=== PATIENT | female | born 1965 | race Caucasian/White ===

== ENCOUNTER → 2022-01-04 | Day surgery (SDC) | payer BC ==
[2021-12-31 11:59] LABS: BASOPHILS % 0.3 % (0.0-1.0); EOSINOPHILS # (AUTO) 0.2 (0.0-0.4); EOSINOPHILS % 1.7 % (0.0-6.0); HEMATOCRIT 46.7 % (34.2-44.1); HEMOGLOBIN 14.3 g/dL (12.0-16.0); LYMPHOCYTES % 22.3 % (18.0-39.1); MEAN CORPUSCULAR HEMOGLOBIN 26.5 pg (28-32); MEAN CORPUSCULAR HGB CONC 30.6 g/dL (31-35); MEAN CORPUSCULAR VOLUME 86.6 fL (81-99); MONOCYTES # (AUTO) 0.6 (0.2-0.8); MONOCYTES % 6.8 % (4.4-11.3); NEUTROPHILS # (AUTO) 6.1 (2.1-6.9); NEUTROPHILS % 68.4 % (38.7-80.0); PLATELET COUNT 247 x10e3/uL (140-360); RED BLOOD COUNT 5.39 x10e6/uL (3.6-5.1); RED CELL DISTRIBUTION WIDTH 16.5 % (11.7-14.4)
[2021-12-31 12:17] LABS: CREATININE, SERUM 0.84 mg/dL (0.57-1.11)
[~2022-01-04] MED LIST: CEFTRIAXONE 1 GM VIAL ONE; CRESTOR10 MG PO; ENALAPRIL MALEA10 MG; FENTANYL CITRATE/PF 100MCG/2 ML INJ ONE; FLAGYL500 MG PO; Famotidine IV; IOPAMIDOL 300MG/ML 50ML INFUS..BTL IV ONE; LEVAQUIN500 MG PO; LISINOPRIL-HCT1 EAC6; LOSARTAN POTASS25 MG PO; MIDAZOLAM HCL 2 MG/2 ML VIAL ONE; MONTELUKAST SOD10 MG PO; NICOTINE PATCH TOP; SODIUM CHLORIDE 0.9% 1000ML 1,000 ML ONE; TYLENOL325 MG PO; Z.0.METOPROLOL TART2; Z.0.SIMVASTATIN40 MG
[2022-01-04 09:00] VITALS: BP 133/73
== END | disposition home or self-care (01) ==
LOC: OR 05:25
PROVIDERS: ATTEND Urology
DX: N20.0 Calculus of kidney (principal); N13.30 Unspecified hydronephrosis; G47.33 Obstructive sleep apnea (adult) (pediatric); J44.9 Chronic obstructive pulmonary disease, unspecified; E11.9 Type 2 diabetes mellitus without complications; Z88.6 Allergy status to analgesic agent; Z88.0 Allergy status to penicillin; Z01.810 Encounter for preprocedural cardiovascular examination; Z01.812 Encounter for preprocedural laboratory examination; Z01.818 Encounter for other preprocedural examination; Z20.822 Contact with and (suspected) exposure to COVID-19; Z79.899 Other long term (current) drug therapy
CPT/HCPCS: 0223U; 36415; 52356; 71046; 74018; 74420; 80048; 85025; 93005; C1769; C1874; J0696; J2250; J3010; J7030; Q9967

== ENCOUNTER → 2022-01-29 | Day surgery (SDC) | payer BC ==
[~2022-01-29] MED LIST changes: -CEFTRIAXONE 1 GM VIAL ONE; +DEXAMETHASONE SOD PHOS INJ 4 MG/ML SDV ONE; +GENTAMICIN 80MG/NS 100 ML 100 ML IV ONE; +LIDOCAINE HCL 2% LOCAL INJ 5 ML SDV VIAL INJ ONE; +ONDANSETRON HCL INJ 2MG/ML 2ML 2 MG/ML VIAL ONE; +POVIDONE IODINE 0.05% 0.05 % ML PO ONE; +PROPOFOL IV EMULSION 10 MG/ML 20 ML VIAL ONE; +SEVOFLURANE INHAL SOLN 250 ML PEN BTL ONE; -SODIUM CHLORIDE 0.9% 1000ML 1,000 ML ONE; +UROCIT-K10 MEQ PO
[2022-01-29 09:57] VITALS: BP 132/74
== END | disposition home or self-care (01) ==
LOC: OR 07:05
PROVIDERS: ATTEND Urology
DX: N20.2 Calculus of kidney with calculus of ureter (principal); Z46.6 Encounter for fitting and adjustment of urinary device; N39.0 Urinary tract infection, site not specified; R35.1 Nocturia; N28.1 Cyst of kidney, acquired; D41.00 Neoplasm of uncertain behavior of unspecified kidney; I10 Essential (primary) hypertension; E66.01 Morbid (severe) obesity due to excess calories; Z88.6 Allergy status to analgesic agent; Z88.0 Allergy status to penicillin; Z88.8 Allergy status to other drugs, medicaments and biological substances; Z01.818 Encounter for other preprocedural examination; Z79.899 Other long term (current) drug therapy; Z68.41 Body mass index [BMI] 40.0-44.9, adult; Z84.1 Family history of disorders of kidney and ureter
CPT/HCPCS: 52353; 74018; 88300; C1758 ×2; C1769; J1100; J1580; J2001; J2250; J2405; J2704; J3010; Q9967; 76000

== ENCOUNTER 2024-03-21 04:35 | Inpatient (IN) | payer BC ==
[~2024-03-21] VITALS: Ht 157.5 cm; Wt 86.2 kg
[2024-03-21] VITALS (39 sets, daily range): BP systolic 131–182; BP diastolic 82–114; PULSE 89–106; RESP 15–24; TEMP 98.8–103.1; O2SAT 100
[~2024-03-21 04:35] MED LIST changes: +CYMBALTA20 MG PO; -DEXAMETHASONE SOD PHOS INJ 4 MG/ML SDV ONE; -FENTANYL CITRATE/PF 100MCG/2 ML INJ ONE; +FIBER GUMMIES2 GM; -GENTAMICIN 80MG/NS 100 ML 100 ML IV ONE; +HYDROCHLOROTH12.5 MG; -IOPAMIDOL 300MG/ML 50ML INFUS..BTL IV ONE; +JARDIANCE10 MG; -LIDOCAINE HCL 2% LOCAL INJ 5 ML SDV VIAL INJ ONE; -MIDAZOLAM HCL 2 MG/2 ML VIAL ONE; -ONDANSETRON HCL INJ 2MG/ML 2ML 2 MG/ML VIAL ONE; +OXYBUTYNIN CHLOR5 MG PO; +OZEMPIC2 MG/0.75; -POVIDONE IODINE 0.05% 0.05 % ML PO ONE; -PROPOFOL IV EMULSION 10 MG/ML 20 ML VIAL ONE; -SEVOFLURANE INHAL SOLN 250 ML PEN BTL ONE
[2024-03-21 05:11] LABS: BASOPHILS % 0.2 % (0.0-1.0); EOSINOPHILS % 0.1 % (0.0-6.0); HEMATOCRIT 45.9 % (34.2-44.1); HEMOGLOBIN 13.8 g/dL (12.0-16.0); LYMPHOCYTES # (AUTO) 1.4 (1.0-3.2); LYMPHOCYTES % 11.5 % (18.0-39.1); MEAN CORPUSCULAR HEMOGLOBIN 27.4 pg (28-32); MEAN CORPUSCULAR HGB CONC 30.1 g/dL (31-35); MEAN CORPUSCULAR VOLUME 91.1 fL (81-99); MONOCYTES # (AUTO) 0.7 (0.2-0.8); MONOCYTES % 5.5 % (4.4-11.3); NEUTROPHILS # (AUTO) 10.2 (2.1-6.9); NEUTROPHILS % 82.1 % (38.7-80.0); PLATELET COUNT 189 x10e3/uL (140-360); RED BLOOD COUNT 5.04 x10e6/uL (3.6-5.1); RED CELL DISTRIBUTION WIDTH 14.7 % (11.7-14.4); WHITE BLOOD COUNT 12.43 x10e3/uL (4.8-10.8)
[2024-03-21] MEDS: ACETAMINOPHEN 325 MG TAB PO ONE (05:25)
[2024-03-21] MEDS: ONDANSETRON HCL INJ 2MG/ML 2ML 2 MG/ML VIAL IV STA (05:25)
[2024-03-21 05:32] LABS: INFLUENZA A AG NEGATIVE (NEGATIVE); INFLUENZA B AG NEGATIVE (NEGATIVE)
[2024-03-21 05:33] LABS: CORONAVIRUS COVID-19 AG NEGATIVE (NEGATIVE)
[2024-03-21 05:34] LABS: ALBUMIN 3.8 g/dL (3.5-5.0); ALBUMIN/GLOBULIN RATIO 1.3 (0.8-2.0); ANION GAP 15.6 mmol/L (8-16); BILIRUBIN,TOTAL 2.5 mg/dL (0.2-1.2); CALCIUM 10.1 mg/dL (8.4-10.2); CREATININE, SERUM 0.88 mg/dL (0.57-1.11); POTASSIUM 3.6 mmol/L (3.5-5.1); TOTAL PROTEIN 6.8 g/dL (6.5-8.1)
[2024-03-21] MEDS ORDERED: SODIUM CHLORIDE 0.9% 1000ML 1,000 ML IV ONE (06:30)
[2024-03-21] MEDS ORDERED: LORAZEPAM INJ 2 MG/ML VIAL ONE (06:50)
[2024-03-21] MEDS: LORAZEPAM INJ 2 MG/ML VIAL IM STA (06:58)
[2024-03-21] MEDS ORDERED: SODIUM CHLORIDE 0.9% IV SCH (07:30)
[2024-03-21] MEDS ORDERED: PIPERACILLIN/TAZOBACTAM 4.5 GM in SODIUM CHLORIDE 0.9% 100 ML IV ONE (07:30)
[2024-03-21 07:32] LABS: CLARITY,URINE CLEAR (CLEAR); COLOR,URINE YELLOW (YELLOW); LEUKOCYTE ESTERASE ,URINE NEGATIVE (NEGATIVE); NITRITE,URINE NEGATIVE (NEGATIVE); PH,URINE 5.5 (5 - 7)
[2024-03-21 07:33] LABS: AMPHETAMINES SCREEN,URINE NEGATIVE (NEGATIVE); BENZODIAZEPINES SCREEN,URINE NEGATIVE (NEGATIVE); BILIRUBIN,URINE SMALL (NEGATIVE); CANNABINOIDS SCREEN,URINE NEGATIVE (NEGATIVE); COCAINE SCREEN,URINE NEGATIVE (NEGATIVE); GLUCOSE, URINE 500 (NEGATIVE); KETONES,URINE 2+ (NEGATIVE); METHADONE SCREEN, URINE NEGATIVE (NEGATIVE); OPIATES SCREEN,URINE POSITIVE (NEGATIVE); PHENCYCLIDINE SCREEN,URINE NEGATIVE (NEGATIVE); PROTEIN,URINE DIPSTICK 2+ (NEGATIVE); URINE UROBILINOGEN 0.2 mg/dL (0.2 - 1)
[2024-03-21 07:41] LABS: INR 0.98; PROTHROMBIN TIME 13.6 seconds (11.9-14.5)
[2024-03-21 07:42] LABS: PARTIAL THROMBOPLASTIN TIME 31.1 seconds (23.8-35.5)
[2024-03-21 07:43] LABS: BACTERIA,URINE MANY /HPF; RBC,URINE 0-5 /HPF (0-5); WBC,URINE (MAN) 21-50 /HPF (0-5)
[2024-03-21 07:44] LABS: YEAST,URINE MODERATE
[2024-03-21 07:45] LABS: EPITHELIAL CELLS,URINE MODERATE /LPF
[2024-03-21 08:19] LABS: APPEARANCE,CSF CLOUDY (CLEAR)
[2024-03-21 08:20] LABS: TUBE NUMBER 3
[2024-03-21] MEDS: PROPOFOL IV EMULSION 10MG/ML 100 ML IV PRN (08:22)
[2024-03-21] MEDS: PROPOFOL IV EMULSION 10 MG/ML 20 ML VIAL IV ONE (08:24)
[2024-03-21 08:30] LABS: RED BLOOD CELL,CSF 77 cells/uL (0-10); WHITE BLOOD CELL,CSF 2772 cells/uL (0-5)
[2024-03-21 08:31] LABS: ABG HCO3 18 mmol/L (22-26); ABG PCO2 24 mmHg (35-45); ABG PH 7.48 (7.35-7.45); ABG PO2 266 mmHg (80-105); ABG TCO2 19
[2024-03-21 08:31] LABS: COLOR,CSF XANTHOCHROMIC (COLORLESS)
[2024-03-21] MEDS: Vancomycin IV 1 GM in SODIUM CHLORIDE 0.9% 250ML 250 ML IV ONE (08:50)
[2024-03-21] MEDS: MUPIROCIN 2% OINT 22 GM TUBE TOP SCH (08:51)
[2024-03-21 08:57] LABS: LYMPHOCYTES,CSF 5 % (40-80); MONOCYTES,CSF 1 %; NEUTROPHILS,CSF 94 % (0-6); TOTAL CELLS COUNTED (DIFF) 100
[2024-03-21] MEDS: CEFTRIAXONE 2 GM in SODIUM CHLORIDE 0.9% 100 ML IV SCH (09:38)
[2024-03-21] MEDS: DEXAMETHASONE SOD PHOS INJ 4 MG/ML SDV IV ONE (09:38)
[2024-03-21] MEDS ORDERED: SODIUM CHLORIDE 0.9% 0 ML ONE (10:08)
[2024-03-21] MEDS: SODIUM CHLORIDE 0.9% 1000ML 1,000 ML IV SCH (10:10)
[2024-03-21] MEDS: ETOMIDATE 2 MG/ML 10 ML INJ IV STA (10:11)
[2024-03-21] MEDS: SUCCINYLCHOLINE CHLORIDE 20 MG/ML 10ML VIAL IV STA (10:11)
[2024-03-21] MEDS: CEFEPIME 2 GM in SODIUM CHLORIDE 0.9% 100 ML IV ONE (10:19)
[2024-03-21] MEDS: ACETAMINOPHEN 325 MG TAB PO PRN (10:31)
[2024-03-21 10:51] LABS: ABG PH 7.42 (7.35-7.45)
[2024-03-21 10:52] LABS: ABG HCO3 20 mmol/L (22-26); ABG PCO2 31 mmHg (35-45); ABG PO2 154 mmHg (80-105); ABG TCO2 21
[2024-03-21] MEDS: LACTATED RINGER'S 1,000 ML INJ ONE (11:33)
[2024-03-21] MEDS: DEXAMETHASONE SOD PHOS INJ 4 MG/ML SDV IV SCH (15:58)
[2024-03-21] MEDS: HYDRALAZINE HCL 20 MG/ML VIAL IV PRN (17:06)
[2024-03-21] MEDS ORDERED: MIDAZOLAM HCL 2 MG/2 ML VIAL ONE (17:12)
[2024-03-21] MEDS ORDERED: ETOMIDATE 2 MG/ML 10 ML INJ IV ONE (17:12)
[2024-03-21] MEDS ORDERED: SUCCINYLCHOLINE CHLORIDE 20 MG/ML 10ML VIAL ONE (17:12)
[2024-03-21] MEDS: IBUPROFEN 100 MG/5 ML SUSP PEG PRN (19:52)
[2024-03-21] MEDS: HEPARIN SOD (PORCINE) 5,000 UNIT/ML VIAL SC SCH (20:23)
[2024-03-21] MEDS: VANCOMYCIN 1.5 GM/300 ML (PEG) 300 ML IV SCH (22:37)
[2024-03-22] VITALS (85 sets, daily range): BP systolic 115–177; BP diastolic 62–132; PULSE 75–113; RESP 15–34; TEMP 101.2–103.3; O2SAT 95–100
[2024-03-22 06:43] LABS: BASOPHILS % 0.1 % (0.0-1.0); EOSINOPHILS % 0.1 % (0.0-6.0); HEMATOCRIT 43.8 % (34.2-44.1); HEMOGLOBIN 13.1 g/dL (12.0-16.0); LYMPHOCYTES # (AUTO) 0.5 (1.0-3.2); LYMPHOCYTES % 2.8 % (18.0-39.1); MEAN CORPUSCULAR HEMOGLOBIN 27.1 pg (28-32); MEAN CORPUSCULAR HGB CONC 29.9 g/dL (31-35); MEAN CORPUSCULAR VOLUME 90.7 fL (81-99); MONOCYTES # (AUTO) 0.8 (0.2-0.8); MONOCYTES % 4.2 % (4.4-11.3); NEUTROPHILS # (AUTO) 17.3 (2.1-6.9); NEUTROPHILS % 91.4 % (38.7-80.0); PLATELET COUNT 168 x10e3/uL (140-360); RED BLOOD COUNT 4.83 x10e6/uL (3.6-5.1); RED CELL DISTRIBUTION WIDTH 14.8 % (11.7-14.4)
[2024-03-22 07:10] LABS: ALBUMIN/GLOBULIN RATIO 0.8 (0.8-2.0); ANION GAP 16.1 mmol/L (8-16); CALCIUM 10.2 mg/dL (8.4-10.2); CREATININE, SERUM 0.83 mg/dL (0.57-1.11); MAGNESIUM 1.9 MG/DL (1.3-2.1); POTASSIUM 3.1 mmol/L (3.5-5.1); TOTAL PROTEIN 6.6 g/dL (6.5-8.1)
[2024-03-22] MEDS ORDERED: DEXTROSE 50% SYRINGE 50 ML IV PRN (07:45)
[2024-03-22] MEDS: POTASSIUM CHLORIDE 20MEQ/100ML 100 ML IV SCH (08:53)
[2024-03-22] MEDS: SIMVASTATIN 20 MG TAB PO SCH (10:54)
[2024-03-22 13:51] LABS: ABG HCO3 24 mmol/L (22-26); ABG PCO2 33 mmHg (35-45); ABG PH 7.46 (7.35-7.45); ABG PO2 130 mmHg (80-105); ABG TCO2 24
[2024-03-22] MEDS: ACETAMINOPHEN 1000 MG/100 ML IV ONE (15:21)
[2024-03-22 16:30] LABS: ABG HCO3 18 mmol/L (22-26); ABG PCO2 24 mmHg (35-45); ABG PH 7.48 (7.35-7.45); ABG PO2 266 mmHg (80-105); ABG TCO2 19
[2024-03-22 16:31] LABS: ABG HCO3 20 mmol/L (22-26); ABG PCO2 31 mmHg (35-45); ABG PH 7.42 (7.35-7.45); ABG PO2 154 mmHg (80-105); ABG TCO2 21
[2024-03-22 16:31] LABS: ABG HCO3 24 mmol/L (22-26); ABG PCO2 33 mmHg (35-45); ABG PH 7.46 (7.35-7.45); ABG PO2 130 mmHg (80-105); ABG TCO2 24
[2024-03-23] VITALS (44 sets, daily range): BP systolic 114–155; BP diastolic 63–96; PULSE 60–84; RESP 17–25; TEMP 98.2–101.5; O2SAT 95–100
[2024-03-23 06:48] LABS: BASOPHILS % 0.1 % (0.0-1.0); EOSINOPHILS % 0.2 % (0.0-6.0); HEMATOCRIT 40.2 % (34.2-44.1); HEMOGLOBIN 12.1 g/dL (12.0-16.0); LYMPHOCYTES # (AUTO) 0.7 (1.0-3.2); LYMPHOCYTES % 3.8 % (18.0-39.1); MEAN CORPUSCULAR HEMOGLOBIN 27.7 pg (28-32); MEAN CORPUSCULAR HGB CONC 30.1 g/dL (31-35); MONOCYTES # (AUTO) 0.6 (0.2-0.8); MONOCYTES % 3.1 % (4.4-11.3); NEUTROPHILS # (AUTO) 15.9 (2.1-6.9); NEUTROPHILS % 90.7 % (38.7-80.0); PLATELET COUNT 181 x10e3/uL (140-360); RED BLOOD COUNT 4.37 x10e6/uL (3.6-5.1); RED CELL DISTRIBUTION WIDTH 15.2 % (11.7-14.4); WHITE BLOOD COUNT 17.52 x10e3/uL (4.8-10.8)
[2024-03-23 07:04] LABS: ALBUMIN 2.7 g/dL (3.5-5.0); ALBUMIN/GLOBULIN RATIO 0.7 (0.8-2.0); ANION GAP 15.6 mmol/L (8-16); BILIRUBIN,TOTAL 0.3 mg/dL (0.2-1.2); CREATININE, SERUM 0.83 mg/dL (0.57-1.11); POTASSIUM 3.6 mmol/L (3.5-5.1); TOTAL PROTEIN 6.5 g/dL (6.5-8.1)
[2024-03-23 08:15] LABS: ABG PH 7.44 (7.35-7.45)
[2024-03-23 08:16] LABS: ABG HCO3 23 mmol/L (22-26); ABG PCO2 33 mmHg (35-45); ABG PO2 90 mmHg (80-105); ABG TCO2 24
[2024-03-23] MEDS: POTASSIUM CHLORIDE 20MEQ/100ML 100 ML IV SCH (08:50)
[2024-03-23] MEDS: DEXMEDETOMIDINE 400MCG/NS100ML 100 ML IV PRN (15:37)
[2024-03-24] VITALS (47 sets, daily range): BP systolic 127–172; BP diastolic 66–98; PULSE 43–75; RESP 14–23; TEMP 97.2–98.3; O2SAT 99–100
[2024-03-24 06:28] LABS: BASOPHILS % 0.1 % (0.0-1.0); EOSINOPHILS % 0.1 % (0.0-6.0); HEMATOCRIT 38.7 % (34.2-44.1); HEMOGLOBIN 11.8 g/dL (12.0-16.0); LYMPHOCYTES # (AUTO) 0.7 (1.0-3.2); LYMPHOCYTES % 6.6 % (18.0-39.1); MEAN CORPUSCULAR HEMOGLOBIN 27.6 pg (28-32); MEAN CORPUSCULAR HGB CONC 30.5 g/dL (31-35); MEAN CORPUSCULAR VOLUME 90.4 fL (81-99); MONOCYTES # (AUTO) 0.3 (0.2-0.8); MONOCYTES % 3.2 % (4.4-11.3); NEUTROPHILS # (AUTO) 9.2 (2.1-6.9); NEUTROPHILS % 88.6 % (38.7-80.0); PLATELET COUNT 201 x10e3/uL (140-360); RED BLOOD COUNT 4.28 x10e6/uL (3.6-5.1); RED CELL DISTRIBUTION WIDTH 15.1 % (11.7-14.4)
[2024-03-24 06:43] LABS: ALBUMIN 2.7 g/dL (3.5-5.0); ALBUMIN/GLOBULIN RATIO 0.7 (0.8-2.0); ANION GAP 15.3 mmol/L (8-16); BILIRUBIN,TOTAL 0.4 mg/dL (0.2-1.2); CALCIUM 10.5 mg/dL (8.4-10.2); CREATININE, SERUM 0.87 mg/dL (0.57-1.11); POTASSIUM 4.3 mmol/L (3.5-5.1); TOTAL PROTEIN 6.5 g/dL (6.5-8.1)
[2024-03-24] MEDS: LACTATED RINGER'S 1,000 ML INJ ONE (07:43)
[2024-03-24 08:14] LABS: ABG HCO3 22 mmol/L (22-26); ABG PCO2 32 mmHg (35-45); ABG PH 7.46 (7.35-7.45); ABG PO2 124 mmHg (80-105); ABG TCO2 23
[2024-03-24] MEDS: LORAZEPAM INJ 2 MG/ML VIAL IV PRN (11:07)
[2024-03-24 13:45] LABS: ABG HCO3 22 mmol/L (22-26); ABG PCO2 32 mmHg (35-45); ABG PH 7.46 (7.35-7.45); ABG PO2 124 mmHg (80-105); ABG TCO2 23
[2024-03-24 13:45] LABS: ABG HCO3 23 mmol/L (22-26); ABG PCO2 33 mmHg (35-45); ABG PH 7.44 (7.35-7.45); ABG PO2 90 mmHg (80-105); ABG TCO2 24
[2024-03-24] MEDS: PROPOFOL IV EMULSION 10MG/ML 100 ML IV PRN (17:52)
[2024-03-25] VITALS (31 sets, daily range): BP systolic 105–179; BP diastolic 65–146; PULSE 56–82; RESP 17–24; TEMP 98.2–99.7; O2SAT 98–100
[2024-03-25 06:22] LABS: BASOPHILS % 0.1 % (0.0-1.0); HEMATOCRIT 40.3 % (34.2-44.1); HEMOGLOBIN 11.9 g/dL (12.0-16.0); LYMPHOCYTES # (AUTO) 1.7 (1.0-3.2); LYMPHOCYTES % 16.7 % (18.0-39.1); MEAN CORPUSCULAR HEMOGLOBIN 27.1 pg (28-32); MEAN CORPUSCULAR HGB CONC 29.5 g/dL (31-35); MEAN CORPUSCULAR VOLUME 91.8 fL (81-99); MONOCYTES # (AUTO) 0.8 (0.2-0.8); MONOCYTES % 7.5 % (4.4-11.3); NEUTROPHILS # (AUTO) 7.5 (2.1-6.9); NEUTROPHILS % 74.1 % (38.7-80.0); PLATELET COUNT 217 x10e3/uL (140-360); RED BLOOD COUNT 4.39 x10e6/uL (3.6-5.1); RED CELL DISTRIBUTION WIDTH 15.1 % (11.7-14.4); WHITE BLOOD COUNT 10.13 x10e3/uL (4.8-10.8)
[2024-03-25 06:45] LABS: ALBUMIN 2.7 g/dL (3.5-5.0); ALBUMIN/GLOBULIN RATIO 0.8 (0.8-2.0); ANION GAP 16.6 mmol/L (8-16); BILIRUBIN,TOTAL 0.3 mg/dL (0.2-1.2); CREATININE, SERUM 0.76 mg/dL (0.57-1.11); POTASSIUM 3.6 mmol/L (3.5-5.1); TOTAL PROTEIN 6.2 g/dL (6.5-8.1)
[2024-03-25 08:21] LABS: ABG HCO3 23 mmol/L (22-26); ABG PCO2 30 mmHg (35-45); ABG PH 7.49 (7.35-7.45); ABG PO2 169 mmHg (80-105); ABG TCO2 24
[2024-03-25] MEDS: POTASSIUM CHLORIDE 20MEQ/100ML 100 ML IV SCH (08:53)
[2024-03-25] MEDS: KETOROLAC TROMETHAMINE 30 MG/ML VIAL IV ONE (18:16)
[2024-03-25] MEDS: DEXMEDETOMIDINE 400MCG/NS100ML 100 ML IV PRN (19:18)
[2024-03-26] VITALS (54 sets, daily range): BP systolic 106–191; BP diastolic 61–158; PULSE 53–116; RESP 12–33; TEMP 97.7–99.5; O2SAT 87–100
[2024-03-26 06:19] LABS: BASOPHILS % 0.1 % (0.0-1.0); EOSINOPHILS % 0.5 % (0.0-6.0); HEMOGLOBIN 11.9 g/dL (12.0-16.0); LYMPHOCYTES % 12.6 % (18.0-39.1); MEAN CORPUSCULAR HEMOGLOBIN 27.3 pg (28-32); MEAN CORPUSCULAR HGB CONC 29.8 g/dL (31-35); MEAN CORPUSCULAR VOLUME 91.7 fL (81-99); MONOCYTES # (AUTO) 0.7 (0.2-0.8); MONOCYTES % 8.1 % (4.4-11.3); NEUTROPHILS # (AUTO) 6.3 (2.1-6.9); NEUTROPHILS % 76.3 % (38.7-80.0); PLATELET COUNT 195 x10e3/uL (140-360); RED BLOOD COUNT 4.36 x10e6/uL (3.6-5.1); RED CELL DISTRIBUTION WIDTH 14.9 % (11.7-14.4); WHITE BLOOD COUNT 8.24 x10e3/uL (4.8-10.8)
[2024-03-26 06:38] LABS: ALBUMIN 2.8 g/dL (3.5-5.0); ALBUMIN/GLOBULIN RATIO 0.8 (0.8-2.0); ANION GAP 12.9 mmol/L (8-16); BILIRUBIN,TOTAL 0.7 mg/dL (0.2-1.2); CALCIUM 9.6 mg/dL (8.4-10.2); CREATININE, SERUM 0.77 mg/dL (0.57-1.11); POTASSIUM 3.9 mmol/L (3.5-5.1); TOTAL PROTEIN 6.1 g/dL (6.5-8.1)
[2024-03-26 09:15] LABS: ABG HCO3 23 mmol/L (22-26); ABG PCO2 30 mmHg (35-45); ABG PH 7.49 (7.35-7.45); ABG PO2 169 mmHg (80-105); ABG TCO2 24
[2024-03-26] MEDS ORDERED: ACYCLOVIR SODIUM INJ 750 MG in SODIUM CHLORIDE 0.9% 250ML 250 ML IV SCH (14:00)
[2024-03-26] MEDS: ACYCLOVIR SODIUM 750 MG in SODIUM CHLORIDE 0.9% 250ML 250 ML IV SCH (14:28)
[2024-03-26] MEDS: LORAZEPAM INJ 2 MG/ML VIAL IV ONE (14:34)
[2024-03-26 20:41] LABS: ABG HCO3 26 mmol/L (22-26); ABG PCO2 46 mmHg (35-45); ABG PH 7.36 (7.35-7.45); ABG PO2 340 mmHg (80-105); ABG TCO2 27
[2024-03-27] VITALS (33 sets, daily range): BP systolic 95–165; BP diastolic 38–96; PULSE 56–100; RESP 12–30; TEMP 97.6–99.4; O2SAT 89–100
[2024-03-27 08:05] LABS: ALBUMIN 2.8 g/dL (3.5-5.0); ALBUMIN/GLOBULIN RATIO 0.8 (0.8-2.0); ANION GAP 16.2 mmol/L (8-16); BILIRUBIN,TOTAL 0.8 mg/dL (0.2-1.2); CALCIUM 9.8 mg/dL (8.4-10.2); CREATININE, SERUM 0.69 mg/dL (0.57-1.11); POTASSIUM 4.2 mmol/L (3.5-5.1); TOTAL PROTEIN 6.5 g/dL (6.5-8.1)
[2024-03-27] MEDS: FUROSEMIDE INJ 10 MG/ML 2 ML VIAL IV ONE (09:42)
[2024-03-27] MEDS: FUROSEMIDE INJ 10 MG/ML 2 ML VIAL ONE (09:46)
[2024-03-27] MEDS: VANCOMYCIN 1.25GM/250 ML (PEG) 250 ML IV SCH (15:55)
[2024-03-27] MEDS: INSULIN GLARGINE 100 UNITS/ML VIAL SQ SCH (20:10)
[2024-03-28] VITALS (30 sets, daily range): BP systolic 109–158; BP diastolic 60–98; PULSE 55–85; RESP 17–30; TEMP 98.2–99.4; O2SAT 91–100
[2024-03-28 07:04] LABS: BASOPHILS % 0.2 % (0.0-1.0); EOSINOPHILS # (AUTO) 0.3 (0.0-0.4); EOSINOPHILS % 2.2 % (0.0-6.0); HEMATOCRIT 41.9 % (34.2-44.1); HEMOGLOBIN 12.6 g/dL (12.0-16.0); LYMPHOCYTES # (AUTO) 1.5 (1.0-3.2); MEAN CORPUSCULAR HEMOGLOBIN 27.1 pg (28-32); MEAN CORPUSCULAR HGB CONC 30.1 g/dL (31-35); MEAN CORPUSCULAR VOLUME 90.1 fL (81-99); MONOCYTES # (AUTO) 0.6 (0.2-0.8); MONOCYTES % 5.3 % (4.4-11.3); NEUTROPHILS # (AUTO) 9.1 (2.1-6.9); NEUTROPHILS % 76.9 % (38.7-80.0); PLATELET COUNT 285 x10e3/uL (140-360); RED BLOOD COUNT 4.65 x10e6/uL (3.6-5.1); RED CELL DISTRIBUTION WIDTH 14.4 % (11.7-14.4); WHITE BLOOD COUNT 11.76 x10e3/uL (4.8-10.8)
[2024-03-28 07:42] LABS: ALBUMIN 2.7 g/dL (3.5-5.0); ALBUMIN/GLOBULIN RATIO 0.8 (0.8-2.0); ANION GAP 16.2 mmol/L (8-16); BILIRUBIN,TOTAL 0.6 mg/dL (0.2-1.2); CALCIUM 9.8 mg/dL (8.4-10.2); CREATININE, SERUM 0.68 mg/dL (0.57-1.11); POTASSIUM 4.2 mmol/L (3.5-5.1); TOTAL PROTEIN 6.1 g/dL (6.5-8.1)
[2024-03-28] MEDS: HEPARIN SOD (PORCINE) 5,000 UNIT/ML VIAL SC SCH (08:53)
[2024-03-28] MEDS ORDERED: CHLORASEPTIC SPRAY 177 ML BTL MM PRN (09:30)
[2024-03-28] MEDS: KETOROLAC TROMETHAMINE 30 MG/ML VIAL IV ONE (11:02)
[2024-03-29] VITALS (28 sets, daily range): BP systolic 103–176; BP diastolic 58–103; PULSE 53–90; RESP 14–29; TEMP 97.8–99.5; O2SAT 93–100
[2024-03-29 07:43] LABS: ABG HCO3 26 mmol/L (22-26); ABG PCO2 46 mmHg (35-45); ABG PH 7.36 (7.35-7.45); ABG PO2 340 mmHg (80-105); ABG TCO2 27
[2024-03-29] MEDS: LACTATED RINGER'S 1,000 ML INJ ONE (09:06)
[2024-03-29] MEDS: ACETAMINOPHEN 1000 MG/100 ML IV PRN (10:02)
[2024-03-30] VITALS (22 sets, daily range): BP systolic 119–166; BP diastolic 62–93; PULSE 54–99; RESP 15–24; TEMP 98.7–99.4; O2SAT 96–100
[2024-03-30] MEDS ORDERED: SODIUM CHLORIDE 0.9% 100 ML ONE (08:49)
[2024-03-30] MEDS: ONDANSETRON HCL INJ 2MG/ML 2ML 2 MG/ML VIAL IV PRN (09:00)
[2024-03-30] MEDS: NICOTINE 21 MG/EA PATCH TOP PRN (22:13)
[2024-03-30] MEDS: SODIUM CHLORIDE 0.9% 250ML 250 ML ONE (23:38)
[2024-03-31] VITALS (10 sets, daily range): BP systolic 133–170; BP diastolic 63–80; PULSE 58–83; RESP 18–20; TEMP 98.1–98.6; O2SAT 95–98
[2024-03-31 06:52] LABS: BASOPHILS % 0.1 % (0.0-1.0); EOSINOPHILS # (AUTO) 0.1 (0.0-0.4); EOSINOPHILS % 1.5 % (0.0-6.0); HEMATOCRIT 37.8 % (34.2-44.1); LYMPHOCYTES # (AUTO) 1.9 (1.0-3.2); LYMPHOCYTES % 20.6 % (18.0-39.1); MEAN CORPUSCULAR HGB CONC 29.1 g/dL (31-35); MEAN CORPUSCULAR VOLUME 92.9 fL (81-99); MONOCYTES # (AUTO) 0.7 (0.2-0.8); MONOCYTES % 7.4 % (4.4-11.3); NEUTROPHILS # (AUTO) 6.5 (2.1-6.9); NEUTROPHILS % 69.2 % (38.7-80.0); PLATELET COUNT 263 x10e3/uL (140-360); RED BLOOD COUNT 4.07 x10e6/uL (3.6-5.1); RED CELL DISTRIBUTION WIDTH 14.9 % (11.7-14.4); WHITE BLOOD COUNT 9.37 x10e3/uL (4.8-10.8)
[2024-03-31 07:47] LABS: ALBUMIN 2.9 g/dL (3.5-5.0); ALBUMIN/GLOBULIN RATIO 1.1 (0.8-2.0); ANION GAP 13.2 mmol/L (8-16); BILIRUBIN,TOTAL 0.4 mg/dL (0.2-1.2); CREATININE, SERUM 0.71 mg/dL (0.57-1.11); TOTAL PROTEIN 5.6 g/dL (6.5-8.1)
[2024-03-31 08:01] LABS: POTASSIUM 3.2 mmol/L (3.5-5.1)
[2024-04-01] VITALS (9 sets, daily range): BP systolic 146–170; BP diastolic 76–92; PULSE 69–103; RESP 18–21; TEMP 97.8–98.4; O2SAT 96–100
[2024-04-01] MEDS: ACETAMIN/BUTALBITAL/CAFFEINE TAB PO ONE (03:48)
[2024-04-01 05:18] LABS: BASOPHILS % 0.2 % (0.0-1.0); EOSINOPHILS # (AUTO) 0.2 (0.0-0.4); EOSINOPHILS % 1.6 % (0.0-6.0); HEMATOCRIT 33.7 % (34.2-44.1); HEMOGLOBIN 10.2 g/dL (12.0-16.0); LYMPHOCYTES # (AUTO) 2.1 (1.0-3.2); LYMPHOCYTES % 22.8 % (18.0-39.1); MEAN CORPUSCULAR HEMOGLOBIN 27.1 pg (28-32); MEAN CORPUSCULAR HGB CONC 30.3 g/dL (31-35); MEAN CORPUSCULAR VOLUME 89.6 fL (81-99); MONOCYTES # (AUTO) 0.6 (0.2-0.8); MONOCYTES % 6.6 % (4.4-11.3); NEUTROPHILS # (AUTO) 6.2 (2.1-6.9); NEUTROPHILS % 67.3 % (38.7-80.0); PLATELET COUNT 264 x10e3/uL (140-360); RED BLOOD COUNT 3.76 x10e6/uL (3.6-5.1); RED CELL DISTRIBUTION WIDTH 15.2 % (11.7-14.4); WHITE BLOOD COUNT 9.23 x10e3/uL (4.8-10.8)
[2024-04-01 05:45] LABS: ANION GAP 14.3 mmol/L (8-16); CALCIUM 9.2 mg/dL (8.4-10.2); CREATININE, SERUM 0.72 mg/dL (0.57-1.11)
[2024-04-01 06:01] LABS: POTASSIUM 3.3 mmol/L (3.5-5.1)
[2024-04-02 04:00] VITALS: BP 174/88; PULSE 83; RESP 20; TEMP 98.2; O2SAT 97
[2024-04-02 08:00] VITALS: BP 180/84; PULSE 97; RESP 19; TEMP 98.8; O2SAT 100
[2024-04-02] MEDS ORDERED: KETOROLAC TROMETHAMINE 30 MG/ML VIAL IV STA (08:03)
[2024-04-02] MEDS: HYDROMORPHONE 1MG/1ML INJ IV STA (09:16)
[2024-04-02 11:31] VITALS: BP 136/83; PULSE 96; RESP 19; TEMP 97.6; O2SAT 98
[2024-04-02] MEDS: TRAMADOL/APAP 37.5MG-325MG TAB PO PRN (12:45)
[2024-04-02 16:10] VITALS: BP 152/78; PULSE 77; RESP 19; TEMP 98.1; O2SAT 100
[2024-04-02] MEDS: KETOROLAC TROMETHAMINE 30 MG/ML VIAL IV ONE (19:26)
[2024-04-02 20:00] VITALS: BP 160/86; PULSE 64; RESP 18; TEMP 98.7; O2SAT 97
[2024-04-03] VITALS (7 sets, daily range): BP systolic 151–177; BP diastolic 77–99; PULSE 66–92; RESP 18–20; TEMP 97.8–98.6; O2SAT 96–99
[2024-04-03 05:26] LABS: BASOPHILS % 0.2 % (0.0-1.0); EOSINOPHILS # (AUTO) 0.2 (0.0-0.4); EOSINOPHILS % 1.8 % (0.0-6.0); HEMATOCRIT 34.4 % (34.2-44.1); HEMOGLOBIN 10.4 g/dL (12.0-16.0); LYMPHOCYTES # (AUTO) 2.2 (1.0-3.2); LYMPHOCYTES % 21.7 % (18.0-39.1); MEAN CORPUSCULAR HEMOGLOBIN 27.1 pg (28-32); MEAN CORPUSCULAR HGB CONC 30.2 g/dL (31-35); MEAN CORPUSCULAR VOLUME 89.6 fL (81-99); MONOCYTES # (AUTO) 0.6 (0.2-0.8); MONOCYTES % 6.3 % (4.4-11.3); NEUTROPHILS # (AUTO) 7.1 (2.1-6.9); NEUTROPHILS % 69.2 % (38.7-80.0); PLATELET COUNT 256 x10e3/uL (140-360); RED BLOOD COUNT 3.84 x10e6/uL (3.6-5.1); RED CELL DISTRIBUTION WIDTH 15.7 % (11.7-14.4); WHITE BLOOD COUNT 10.22 x10e3/uL (4.8-10.8)
[2024-04-03 06:08] LABS: ANION GAP 12.4 mmol/L (8-16); CALCIUM 9.4 mg/dL (8.4-10.2); CREATININE, SERUM 0.66 mg/dL (0.57-1.11)
[2024-04-03 06:10] LABS: POTASSIUM 3.4 mmol/L (3.5-5.1)
[2024-04-03] MEDS ORDERED: GADOBENATE DIMEGLUMINE 1 ML IV ONE (08:42)
[2024-04-03] MEDS: AMLODIPINE BESYLATE 5 MG TAB PO SCH (09:47)
[2024-04-04 00:41] VITALS: BP 139/68; PULSE 84; RESP 16; TEMP 97.9; O2SAT 99
[2024-04-04 05:30] VITALS: BP 163/81; PULSE 84; RESP 16; TEMP 98.1; O2SAT 98
[2024-04-04 08:00] VITALS: BP 154/87; PULSE 83; RESP 18; TEMP 97.7; O2SAT 99
[2024-04-04] MEDS: LOSARTAN POTASSIUM 25 MG TAB PO SCH (08:50)
[2024-04-04] MEDS: VANCOMYCIN 1.25GM/250 ML (PEG) 250 ML IV SCH (08:51)
[2024-04-04] MEDS ORDERED: LOSARTAN POTASSIUM 25 MG TAB PO SCH (09:00)
[2024-04-04 09:02] VITALS: BP 154/87; PULSE 83; RESP 18; TEMP 97.7; O2SAT 99
[2024-04-04 12:00] VITALS: BP 171/93; PULSE 82; RESP 19; TEMP 98; O2SAT 98
[2024-04-04] MEDS ORDERED: GADOBENATE DIMEGLUMINE 1 ML IV ONE (12:31)
[2024-04-04] MEDS ORDERED: Morphine 4mg INJECTION 4 MG/ML INJ IV PRN (17:00)
== END 2024-04-04 17:00 | disposition home or self-care (01) | DRG 870 ==
LOC: ER 04:57 → ERHOLD 08:29 → ICU 09:25 → MED/SURG2 03-30 15:55
PROVIDERS: ADMIT Family Medicine; ATTEND Family Medicine
PROC: 5A1955Z Respiratory Ventilation, Greater than 96 Consecutive Hours (ICD-10-PCS; principal; 2024-03-21)
PROC: 02HV33Z Insertion of Infusion Device into Superior Vena Cava, Percutaneous Approach (ICD-10-PCS; 2024-03-21)
PROC: 0BH17EZ Insertion of Endotracheal Airway into Trachea, Via Natural or Artificial Opening (ICD-10-PCS; 2024-03-21)
PROC: 009U3ZX Drainage of Spinal Canal, Percutaneous Approach, Diagnostic (ICD-10-PCS; 2024-03-21)
PROC: 3E0333Z Introduction of Anti-inflammatory into Peripheral Vein, Percutaneous Approach (ICD-10-PCS; 2024-03-21)
PROC: 4A133R1 Monitoring of Arterial Saturation, Peripheral, Percutaneous Approach (ICD-10-PCS; 2024-03-24)
PROC: 02HV33Z Insertion of Infusion Device into Superior Vena Cava, Percutaneous Approach (ICD-10-PCS; 2024-03-25)
PROC: 5A0955A Assistance with Respiratory Ventilation, Greater than 96 Consecutive Hours, High Flow/Velocity Cannula (ICD-10-PCS; 2024-03-26)
DX: A40.3 Sepsis due to Streptococcus pneumoniae (principal); G00.2 Streptococcal meningitis; J96.01 Acute respiratory failure with hypoxia; G93.41 Metabolic encephalopathy; R65.20 Severe sepsis without septic shock; E87.20 Acidosis, unspecified; N39.0 Urinary tract infection, site not specified; R78.81 Bacteremia; B95.62 Methicillin resistant Staphylococcus aureus infection as the cause of diseases classified elsewhere; E11.9 Type 2 diabetes mellitus without complications; D64.9 Anemia, unspecified; Z11.52 Encounter for screening for COVID-19; I10 Essential (primary) hypertension; J44.9 Chronic obstructive pulmonary disease, unspecified; F41.9 Anxiety disorder, unspecified; F32.A Depression, unspecified; E78.5 Hyperlipidemia, unspecified; K21.9 Gastro-esophageal reflux disease without esophagitis; G47.33 Obstructive sleep apnea (adult) (pediatric); R53.81 Other malaise; J32.9 Chronic sinusitis, unspecified; H65.03 Acute serous otitis media, bilateral; B02.9 Zoster without complications; E66.9 Obesity, unspecified; Z68.34 Body mass index [BMI] 34.0-34.9, adult; Y84.8 Other medical procedures as the cause of abnormal reaction of the patient, or of later complication, without mention of misadventure at the time of the procedure; Z79.85 Long-term (current) use of injectable non-insulin antidiabetic drugs; Z79.84 Long term (current) use of oral hypoglycemic drugs; Z88.0 Allergy status to penicillin; Z88.6 Allergy status to analgesic agent; F17.200 Nicotine dependence, unspecified, uncomplicated
CPT/HCPCS: 31500; 36415; 36555; 36569; 36600; 70450; 70551; 70553; 71045; 72156; 74018; 76705; 80048; 80053; 80202; 80307; 80320; 81001; 82140; 82805; 82945; 82948; 83605; 83735; 84157; 84484; 85025; 85610; 85730; 87040; 87070; 87071; 87086; 87186; 87205; 89051; 93005; 93306; 94002; 94003; 94799; 99252; 99285; J0330; J0360; J0692; J0696; J1100; J1171; J1644; J1815; J1885; J1940; J2060; J2250; J2405; J2470; J3480; J7030; J7050

== ENCOUNTER 2025-01-17 05:28 | Emergency (ER) | payer BC ==
[~2025-01-17] VITALS: Ht 157.5 cm; Wt 86.2 kg
[2025-01-17 05:28] VITALS: TEMP 98.6
[2025-01-17] MEDS: ONDANSETRON HCL INJ 2MG/ML 2ML 2 MG/ML VIAL IV STA (06:38)
[2025-01-17] MEDS: SODIUM CHLORIDE 0.9% 1000ML 1,000 ML IV STA (06:38)
[2025-01-17] MEDS: Morphine 4mg INJECTION 4 MG/ML INJ IV STA (06:38)
[2025-01-17 06:45] LABS: BASOPHILS % 0.2 % (0.0-1.0); EOSINOPHILS % 0.8 % (0.0-6.0); LYMPHOCYTES % 11.2 % (18.0-39.1); MONOCYTES % 8.8 % (4.4-11.3); NEUTROPHILS % 78.4 % (38.7-80.0); RED CELL DISTRIBUTION WIDTH 14.9 % (11.7-14.4)
[2025-01-17 06:49] LABS: INR 0.95
[2025-01-17 06:59] LABS: EST GLOMERULAR FILTRATION RATE 59.0 ML/MIN (>=60)
[2025-01-17] MEDS ORDERED: IOPAMIDOL 370 MG/ML 100 ML INFUS..BTL INJ ONE (07:07)
[2025-01-17] MEDS: HYDROMORPHONE 1MG/1ML INJ IV STA (09:11)
[2025-01-17] MEDS ORDERED: HYDROCODON-ACE1 EA11 PO (10:01)
[2025-01-17 10:28] VITALS: PULSE 81; RESP 18
[2025-01-17 10:30] VITALS: BP 129/86; O2SAT 99
== END 2025-01-17 10:29 | disposition home or self-care (01) ==
LOC: EDSEX 05:28 → ER 06:21
DX: H66.92 Otitis media, unspecified, left ear (principal); H60.92 Unspecified otitis externa, left ear; I10 Essential (primary) hypertension; E11.9 Type 2 diabetes mellitus without complications; J44.9 Chronic obstructive pulmonary disease, unspecified; E78.5 Hyperlipidemia, unspecified; D64.9 Anemia, unspecified; G47.30 Sleep apnea, unspecified; F41.9 Anxiety disorder, unspecified; F32.A Depression, unspecified
CPT/HCPCS: 36415; 70450; 70487; 80053; 85025; 85610; 85730; 87040; 87071; 87205; 99284; J1171; J2270; J2405; J7030; Q9967